=== PATIENT | male | born 1985 | race Caucasian/White ===

== ENCOUNTER 2020-05-21 21:06 | Emergency (ER) | payer OTHER ==
[2020-05-21] MEDS ORDERED: IBUPROFEN600 MG PO (22:27)
== END 2020-05-21 23:00 | disposition home or self-care (01) ==
LOC: ER1 21:06
DX: S63.601A Unspecified sprain of right thumb, initial encounter (principal); S00.81XA Abrasion of other part of head, initial encounter; Z88.0 Allergy status to penicillin; V49.10XA Passenger injured in collision with unspecified motor vehicles in nontraffic accident, initial encounter; Y92.410 Unspecified street and highway as the place of occurrence of the external cause
CPT/HCPCS: 73130; 99283